=== PATIENT | male | born 2005 | race Two or more races ===

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

== ENCOUNTER 2025-03-08 15:56 | Emergency (ER) | payer OTHER ==
[~2025-03-08] VITALS: Ht 172.7 cm; Wt 59.0 kg
[~2025-03-08 15:56] MED LIST: AMOX1TAB5 PO; FLONASE16 GM NASAL; ZYRTEC10 MG PO
== END 2025-03-08 18:03 | disposition home or self-care (01) ==
LOC: ER 15:56 → EMR PED 16:22 → ER 16:22 → EMR PED 18:03
DX: K06.8 Other specified disorders of gingiva and edentulous alveolar ridge (principal)